=== PATIENT | female | born 1940 | race Two or more races ===

== ENCOUNTER 2021-09-27 14:02 | Inpatient (IN) | payer OTHER ==
[~2021-09-27] VITALS: Ht 157.5 cm; Wt 40.1 kg
[2021-09-27 15:44] LABS: Basophils # (auto) 0.1 10 ^3/uL (0-0.2); Basophils % (auto) 0.5 % (0.0-2.0); Eosinophils # (auto) 0 10 ^3/uL (0-0.8); Hematocrit 48.5 % (36.0-46.0); Hemoglobin 16.5 g/dL (12.2-16.2); Lymphocytes # (auto) 1.2 10 ^3/uL (0.4-5.4); Lymphocytes % (auto) 11.4 % (10.0-50.0); Mean Corpuscular Hemoglobin 31.6 pg (28.0-32.0); Mean Corpuscular Hgb Conc. 33.9 g/dL (32.0-36.0); Mean Corpuscular Volume 93.3 fL (80.0-100.0); Monocytes % (auto) 9.5 % (0.0-12.0); Neutrophils # (auto) 8.5 10 ^3/uL (1.6-8.6); Neutrophils % (auto) 78.6 % (37.0-80.0); Nucleated Red Blood Cells % 0.1 %; Red Cell Distribution Width 13.5 % (11.8-14.3); White Blood Cell 10.8 10^3/uL (4.4-10.8)
[2021-09-27] MEDS ORDERED: IPRATROPIUM BROM 0.5 MG/2.5ML INH SOL NEB ONE (15:45)
[2021-09-27] MEDS ORDERED: levoFLOXacin 250 MG TAB PO ONE (15:45)
[2021-09-27] MEDS ORDERED: ALBUTEROL SULF 2.5 MG/0.5ML(0.5%) NEB SOLN NEB ONE (15:45)
[2021-09-27] MEDS ORDERED: DexAMETHasone SOD PHOS 10MG/1ML VIAL INJ IM ONE (15:45)
[2021-09-27 15:46] LABS: Albumin 3.2 g/dL (3.4-5.0); BUN/Creatinine Ratio 20.6; Calcium 9.8 mg/dL (8.5-10.1); Potassium 4.6 mmol/L (3.5-5.1)
[2021-09-27 15:48] LABS: Bilirubin, Total 0.5 mg/dL (0.2-1.0); Total Protein 7.5 g/dL (6.4-8.2)
[2021-09-27] MEDS ORDERED: SODIUM CHLORIDE 0.9% 1,000 ML IV ONE (16:30)
[2021-09-27] MEDS ORDERED: MORPHINE SULFATE INJECTION 2 MG/ML SYRG IV PRN ×2 (17:45→19:15)
[2021-09-27] MEDS ORDERED: NITROGLYCERIN 0.4 MG SL TAB SL PRN (17:45)
[2021-09-27] MEDS ORDERED: dilTIAZem 120MG ER CAP PO ONE (18:15)
[2021-09-27] MEDS ORDERED: FAMOTIDINE (10MG/ML) 2ML VL IV ONE (19:15)
[2021-09-27] MEDS ORDERED: ACETAMINOPHEN 325 MG TAB PO PRN (19:15)
[2021-09-27] MEDS ORDERED: HYDROcodone-ACET 5/325MG TAB PO PRN ×3 (19:15→19:30)
[2021-09-27] MEDS: SODIUM CHLORIDE 0.9% 1,000 ML IV SCH (19:15)
[2021-09-27] MEDS ORDERED: levoFLOXacin 500MG 100 ML IV ONE (19:15)
[2021-09-27] MEDS ORDERED: ONDANSETRON HCL 4 MG/2 ML VIAL IV PRN (19:15)
[2021-09-27] MEDS ORDERED: LORazepam 0.5 MG TAB PO PRN (19:15)
[2021-09-27] MEDS ORDERED: hydrALAZINE HCL 20 MG/ML VL IV PRN (19:15)
[2021-09-27] MEDS ORDERED: DOCUSATE SOD 100 MG CAP PO PRN (19:15)
[2021-09-27 19:48] LABS: INR 1.07 (0.9-1.15); Partial Thromboplastin Time 27.1 sec (23.6-33.0)
[2021-09-27 21:42] LABS: Magnesium 1.7 mg/dL (1.6-2.6); Phosphorus 3.1 mg/dL (2.5-4.90)
[2021-09-27] MEDS: BUDESONIDE (INHALATION) 0.5 MG/2 ML NEB NEB SCH (21:56)
[2021-09-27] MEDS: IPRATROPIUM BROM 0.5 MG/2.5ML INH SOL NEB SCH (21:56)
[2021-09-27] MEDS ORDERED: ASPI1TAB20 PO (23:07)
[2021-09-27] MEDS: methylPREDNISolone SOD SUCC 40 MG/ML VL IV SCH (23:10)
[2021-09-27] MEDS: MONTELUKAST SODIUM 10 MG TAB PO SCH (23:10)
[2021-09-27] MEDS: ATORVASTATIN 20 MG TAB PO SCH (23:10)
[2021-09-27 23:14] VITALS: BP 103/44
[2021-09-27 23:19] VITALS: BP 113/57
[2021-09-28] VITALS (7 sets, daily range): BP systolic 119–138; BP diastolic 60–71
[2021-09-28] MEDS: IPRATROPIUM BROM 0.5 MG/2.5ML INH SOL NEB SCH ×6 (01:58→23:22)
[2021-09-28 02:29] LABS: Urine Bacteria FEW /hpf (None Seen); Urine Blood Negative /uL (Negative); Urine Hyaline Cast FEW /lpf (0 - 2); Urine Mucus FEW (None Seen); Urine Specific Gravity 1.016 (1.001-1.035); Urine WBC 42 /hpf (0 - 5)
[2021-09-28 02:32] LABS: Alcohol, Urine < 3.0 mg/dL (0-10); Amphetamine Screen, Urine NEGATIVE (NEGATIVE); Barbiturate Scree,Urine NEGATIVE (NEGATIVE); Benzodiazephine Screen, Urine NEGATIVE (NEGATIVE); Cannabinoid Screen, Urine POSITIVE (NEGATIVE); Cocaine Screen, Urine NEGATIVE (NEGATIVE); Opiate Scree,Urine NEGATIVE (NEGATIVE); Phencyclidine Screen, Urine NEGATIVE (NEGATIVE); Protein, Urine 60.5 mg/dL (0.0-11.9)
[2021-09-28 05:52] LABS: Basophils # (auto) 0 10 ^3/uL (0-0.2); Basophils % (auto) 0.5 % (0.0-2.0); Eosinophils # (auto) 0 10 ^3/uL (0-0.8); Hematocrit 42.9 % (36.0-46.0); Hemoglobin 14.7 g/dL (12.2-16.2); Lymphocytes # (auto) 0.7 10 ^3/uL (0.4-5.4); Lymphocytes % (auto) 13.8 % (10.0-50.0); Mean Corpuscular Hemoglobin 31.9 pg (28.0-32.0); Mean Corpuscular Hgb Conc. 34.4 g/dL (32.0-36.0); Mean Corpuscular Volume 92.8 fL (80.0-100.0); Monocytes # (auto) 0.2 10 ^3/uL (0-1.3); Monocytes % (auto) 3.3 % (0.0-12.0); Neutrophils # (auto) 3.9 10 ^3/uL (1.6-8.6); Neutrophils % (auto) 82.4 % (37.0-80.0); Nucleated Red Blood Cells % 0.1 %; Red Blood Cells 4.62 10^6/uL (4.0-5.20); Red Cell Distribution Width 13.6 % (11.8-14.3); White Blood Cell 4.7 10^3/uL (4.4-10.8)
[2021-09-28 06:07] LABS: INR 1.14 (0.9-1.15); Partial Thromboplastin Time 27.2 sec (23.6-33.0)
[2021-09-28] MEDS: BUDESONIDE (INHALATION) 0.5 MG/2 ML NEB NEB SCH ×2 (06:10→20:56)
[2021-09-28 06:12] LABS: Albumin 2.7 g/dL (3.4-5.0); Calcium 8.7 mg/dL (8.5-10.1); Magnesium 1.6 mg/dL (1.6-2.6); Potassium 4.7 mmol/L (3.5-5.1)
[2021-09-28 06:20] LABS: Bilirubin, Total 0.4 mg/dL (0.2-1.0); CRP High Sensitivity 1.46 mg/dL (< 0.3); Phosphorus 2.3 mg/dL (2.5-4.90); Total Protein 6.3 g/dL (6.4-8.2); Uric Acid 8.3 mg/dL (2.6-6.0)
[2021-09-28] MEDS: methylPREDNISolone SOD SUCC 40 MG/ML VL IV SCH ×3 (06:23→21:31)
[2021-09-28 06:28] LABS: Thyroid Stimulating Hormone 0.35 uIU/mL (0.358-3.74)
[2021-09-28] MEDS ORDERED: levoFLOXacin 500MG 100 ML IV SCH (10:00)
[2021-09-28] MEDS: dilTIAZem 120MG ER CAP PO SCH (10:30)
[2021-09-28] MEDS: CHOLECALCIFEROL (VITD3) 2,000 UNIT CAP/TAB PO SCH (10:30)
[2021-09-28] MEDS: ASPirin 81 mg TAB PO SCH (10:30)
[2021-09-28] MEDS: levoFLOXacin 250MG 50 ML IV SCH (10:31)
[2021-09-28] MEDS: ENOXAPARIN SOD 40 MG/0.4 ML SYRINGE SC SCH (10:31)
[2021-09-28] MEDS: SODIUM CHLORIDE 0.9% 1,000 ML IV SCH (14:17)
[2021-09-28] MEDS: MONTELUKAST SODIUM 10 MG TAB PO SCH (21:30)
[2021-09-28] MEDS: ATORVASTATIN 20 MG TAB PO SCH (21:30)
[2021-09-29] MEDS: IPRATROPIUM BROM 0.5 MG/2.5ML INH SOL NEB SCH ×6 (01:38→22:07)
[2021-09-29] MEDS: methylPREDNISolone SOD SUCC 40 MG/ML VL IV SCH ×3 (05:24→21:53)
[2021-09-29 05:40] VITALS: BP 101/42
[2021-09-29] MEDS: SODIUM CHLORIDE 0.9% 1,000 ML IV SCH (06:00)
[2021-09-29] MEDS: BUDESONIDE (INHALATION) 0.5 MG/2 ML NEB NEB SCH ×2 (06:15→18:32)
[2021-09-29 06:40] LABS: Basophils # (auto) 0.2 10 ^3/uL (0-0.2); Eosinophils # (auto) 0 10 ^3/uL (0-0.8); Hematocrit 39.7 % (36.0-46.0); Hemoglobin 13.6 g/dL (12.2-16.2); Lymphocytes # (auto) 1.4 10 ^3/uL (0.4-5.4); Lymphocytes % (auto) 9.2 % (10.0-50.0); Mean Corpuscular Hemoglobin 31.5 pg (28.0-32.0); Mean Corpuscular Hgb Conc. 34.3 g/dL (32.0-36.0); Mean Corpuscular Volume 91.8 fL (80.0-100.0); Monocytes # (auto) 0.9 10 ^3/uL (0-1.3); Monocytes % (auto) 5.9 % (0.0-12.0); Neutrophils # (auto) 12.4 10 ^3/uL (1.6-8.6); Neutrophils % (auto) 83.9 % (37.0-80.0); Nucleated Red Blood Cells % 0.2 %; Red Blood Cells 4.32 10^6/uL (4.0-5.20); Red Cell Distribution Width 13.5 % (11.8-14.3); White Blood Cell 14.8 10^3/uL (4.4-10.8)
[2021-09-29 06:51] LABS: INR 1.05 (0.9-1.15); Partial Thromboplastin Time 24.9 sec (23.6-33.0)
[2021-09-29 08:03] LABS: Albumin 2.7 g/dL (3.4-5.0); BUN/Creatinine Ratio 24.6; Calcium 8.9 mg/dL (8.5-10.1)
[2021-09-29 08:06] LABS: Bilirubin, Total 0.4 mg/dL (0.2-1.0)
[2021-09-29 09:04] VITALS: BP 124/76
[2021-09-29] MEDS: CHOLECALCIFEROL (VITD3) 2,000 UNIT CAP/TAB PO SCH (09:27)
[2021-09-29] MEDS: ENOXAPARIN SOD 40 MG/0.4 ML SYRINGE SC SCH (09:27)
[2021-09-29] MEDS: ASPirin 81 mg TAB PO SCH (09:27)
[2021-09-29] MEDS: levoFLOXacin 250MG 50 ML IV SCH (09:27)
[2021-09-29] MEDS: dilTIAZem 120MG ER CAP PO SCH (09:28)
[2021-09-29] MEDS ORDERED: FAMOTIDINE (10MG/ML) 2ML VL IV SCH (10:00)
[2021-09-29] MEDS ORDERED: guaiFENesin-DM 100/10mg/5ml SYR PO PRN (12:15)
[2021-09-29 13:00] VITALS: BP 139/72
[2021-09-29 16:52] VITALS: BP 131/70
[2021-09-29] MEDS: AMIODARONE HCL 200 MG TAB PO SCH (21:54)
[2021-09-29] MEDS: APIXABAN 2.5 MG TAB PO SCH (21:54)
[2021-09-29] MEDS: ATORVASTATIN 20 MG TAB PO SCH (21:55)
[2021-09-29] MEDS: MONTELUKAST SODIUM 10 MG TAB PO SCH (21:55)
[2021-09-29] MEDS: METOPROLOL TARTRATE 25 MG TAB PO SCH (21:56)
[2021-09-29 22:00] VITALS: BP 140/62
[2021-09-30] MEDS: IPRATROPIUM BROM 0.5 MG/2.5ML INH SOL NEB SCH ×6 (02:21→22:28)
[2021-09-30] MEDS: SODIUM CHLORIDE 0.9% 1,000 ML IV SCH ×3 (03:00→17:35)
[2021-09-30 05:11] VITALS: BP 114/50
[2021-09-30] MEDS: methylPREDNISolone SOD SUCC 40 MG/ML VL IV SCH ×2 (05:26→09:40)
[2021-09-30] MEDS: BUDESONIDE (INHALATION) 0.5 MG/2 ML NEB NEB SCH ×2 (06:28→19:26)
[2021-09-30 09:00] VITALS: BP 128/47
[2021-09-30] MEDS: levoFLOXacin 250MG 50 ML IV SCH (09:40)
[2021-09-30] MEDS: CHOLECALCIFEROL (VITD3) 2,000 UNIT CAP/TAB PO SCH (09:40)
[2021-09-30] MEDS: APIXABAN 2.5 MG TAB PO SCH ×2 (09:40→21:30)
[2021-09-30] MEDS: AMIODARONE HCL 200 MG TAB PO SCH ×2 (09:41→21:30)
[2021-09-30] MEDS: METOPROLOL TARTRATE 25 MG TAB PO SCH ×2 (09:42→21:31)
[2021-09-30] MEDS ORDERED: ZINC SULFATE 220mg CAP or TAB PO ONE (11:15)
[2021-09-30] MEDS ORDERED: ASCORBIC ACID 500 MG TAB PO ONE (11:15)
[2021-09-30 13:00] VITALS: BP 116/54
[2021-09-30 17:00] VITALS: BP 125/80
[2021-09-30] MEDS: ATORVASTATIN 20 MG TAB PO SCH (21:30)
[2021-09-30] MEDS: MONTELUKAST SODIUM 10 MG TAB PO SCH (21:30)
[2021-09-30] MEDS: ASCORBIC ACID 500 MG TAB PO SCH (21:31)
[2021-09-30 22:00] VITALS: BP 140/55
[2021-10-01] MEDS: IPRATROPIUM BROM 0.5 MG/2.5ML INH SOL NEB SCH ×6 (02:39→22:45)
[2021-10-01 04:50] VITALS: BP 99/45
[2021-10-01] MEDS: BUDESONIDE (INHALATION) 0.5 MG/2 ML NEB NEB SCH ×2 (07:29→19:25)
[2021-10-01 09:00] VITALS: BP 130/72
[2021-10-01] MEDS: SODIUM CHLORIDE 0.9% 1,000 ML IV SCH (09:30)
[2021-10-01] MEDS: methylPREDNISolone SOD SUCC 40 MG/ML VL IV SCH (09:34)
[2021-10-01] MEDS: ZINC SULFATE 220mg CAP or TAB PO SCH (09:34)
[2021-10-01] MEDS: ASCORBIC ACID 500 MG TAB PO SCH ×2 (09:34→22:17)
[2021-10-01] MEDS: APIXABAN 2.5 MG TAB PO SCH ×2 (09:34→22:21)
[2021-10-01] MEDS: CHOLECALCIFEROL (VITD3) 2,000 UNIT CAP/TAB PO SCH (09:34)
[2021-10-01] MEDS: AMIODARONE HCL 200 MG TAB PO SCH ×2 (09:34→22:17)
[2021-10-01] MEDS: METOPROLOL TARTRATE 25 MG TAB PO SCH ×2 (09:35→22:18)
[2021-10-01] MEDS: levoFLOXacin 250MG 50 ML IV SCH (09:36)
[2021-10-01 13:10] VITALS: BP 130/70
[2021-10-01 17:00] VITALS: BP 133/70
[2021-10-01] MEDS: Ensure HIGH Protein Chocolate 8oz Bottle PO SCH (18:03)
[2021-10-01 20:00] VITALS: BP 115/53
[2021-10-01 21:57] VITALS: BP 115/53
[2021-10-01] MEDS: ATORVASTATIN 20 MG TAB PO SCH (22:17)
[2021-10-01] MEDS: MONTELUKAST SODIUM 10 MG TAB PO SCH (22:18)
[2021-10-02] MEDS: SODIUM CHLORIDE 0.9% 1,000 ML IV SCH (02:39)
[2021-10-02] MEDS: IPRATROPIUM BROM 0.5 MG/2.5ML INH SOL NEB SCH ×4 (02:45→15:40)
[2021-10-02 05:05] VITALS: BP 137/74
[2021-10-02 08:00] VITALS: BP 115/53
[2021-10-02] MEDS: Ensure HIGH Protein Chocolate 8oz Bottle PO SCH (09:08)
[2021-10-02] MEDS: ZINC SULFATE 220mg CAP or TAB PO SCH (09:09)
[2021-10-02] MEDS: levoFLOXacin 250MG 50 ML IV SCH (09:09)
[2021-10-02] MEDS: methylPREDNISolone SOD SUCC 40 MG/ML VL IV SCH (09:09)
[2021-10-02] MEDS: ASCORBIC ACID 500 MG TAB PO SCH (09:10)
[2021-10-02] MEDS: APIXABAN 2.5 MG TAB PO SCH (09:10)
[2021-10-02] MEDS: AMIODARONE HCL 200 MG TAB PO SCH (09:10)
[2021-10-02] MEDS: CHOLECALCIFEROL (VITD3) 2,000 UNIT CAP/TAB PO SCH (09:10)
[2021-10-02] MEDS: METOPROLOL TARTRATE 25 MG TAB PO SCH (09:10)
[2021-10-02] MEDS: BUDESONIDE (INHALATION) 0.5 MG/2 ML NEB NEB SCH (09:54)
[2021-10-02] MEDS ORDERED: ATOR10TA PO (12:27)
[2021-10-02] MEDS ORDERED: APIX5TAB PO (12:27)
[2021-10-02] MEDS ORDERED: ALBUAER3 IN (12:27)
[2021-10-02] MEDS ORDERED: METO25TA5 PO (12:27)
[2021-10-02] MEDS ORDERED: CHOL20009 PO (12:27)
[2021-10-02] MEDS ORDERED: AMIO200T33 PO (12:27)
[2021-10-02] MEDS ORDERED: LEVO500T31 PO (12:27)
[2021-10-02] MEDS ORDERED: ASCO500C49 PO (12:27)
[2021-10-02 13:00] VITALS: BP 134/65
[2021-10-02 15:06] VITALS: BP 117/70
== END 2021-10-02 16:30 | disposition home or self-care (01) | DRG 871 ==
LOC: ER 14:02 → TELE 17:34 → TELE-WESTW 22:40
PROVIDERS: ADMIT Hospitalist; ATTEND Family Medicine
DX: A41.89 Other specified sepsis (principal); U07.1 COVID-19; J12.82 Pneumonia due to coronavirus disease 2019; J96.01 Acute respiratory failure with hypoxia; J45.901 Unspecified asthma with (acute) exacerbation; J44.1 Chronic obstructive pulmonary disease with (acute) exacerbation; I47.1 Supraventricular tachycardia; N17.9 Acute kidney failure, unspecified; N39.0 Urinary tract infection, site not specified; E46 Unspecified protein-calorie malnutrition; Z68.1 Body mass index [BMI] 19.9 or less, adult; J44.0 Chronic obstructive pulmonary disease with (acute) lower respiratory infection; J20.8 Acute bronchitis due to other specified organisms; I48.0 Paroxysmal atrial fibrillation; D75.1 Secondary polycythemia; R63.4 Abnormal weight loss; E78.00 Pure hypercholesterolemia, unspecified; E78.5 Hyperlipidemia, unspecified; F12.10 Cannabis abuse, uncomplicated; I10 Essential (primary) hypertension; R73.03 Prediabetes; Z87.891 Personal history of nicotine dependence
CPT/HCPCS: 36415; 36600; 71045; 71250; 80053; 80061; 80307; 81001; 82550; 82728; 82805; 83036; 83615; 83690; 83735; 83880; 84100; 84156; 84443; 84484; 84550; 85025; 85379; 85610; 85652; 85730; 86141; 87040; 87070; 87086; 87088; 87186; 87205; 93005; 93306; 94640; 96365; 96375; G0378; J1100; J1956; J3490